=== PATIENT | male | born 1960 | race Caucasian/White ===

== ENCOUNTER → 2016-05-20 | Outpatient (CLI) | payer OTHER | END | disposition home or self-care (01) | LOC: GMAJ 12:44 | PROVIDERS: ATTEND Family Medicine | DX: Z00.00 Encounter for general adult medical examination without abnormal findings (principal) ==

== ENCOUNTER → 2019-12-22 | Outpatient (CLI) | payer BC ==
--- NOTE | 2019-12-22 14:21 | US ---
EXAM DESCRIPTION: Renal (accession [id number]), Renal Arteries (accession [id number]) CLINICAL HISTORY: 59 years Male, ESSENTIAL HTN COMPARISON: None. TECHNIQUE: Real-time sonographic images of the kidneys, retroperitoneum, and urinary bladder are obtained including color duplex Doppler evaluation of the arterial venous vasculature of the kidneys. FINDINGS: The right kidney measures 12.0 x 5.4 x 5.8 cm. The left kidney measures 12.1 x 6.7 x 6.4 cm. Both kidneys show normal renal cortical echogenicity. No hydronephrosis. Normal cortical echogenicity and cortical thickness. Urinary bladder is normally distended and unremarkable. Bladder volume is 204 mL. Abdominal aorta shows no aneurysmal dilatation. Mild scattered calcified plaque of the abdominal aorta. No elevated velocities. No elevated velocities are seen in the visualized main renal arteries. The abdominal aorta renal artery ratio is 1.2 on the right and 1.1 on the left. Right proximal renal artery is not seen secondary to overlying bowel gas. IMPRESSION: Unremarkable renal ultrasound. No hydronephrosis. No ultrasound evidence of renal artery stenosis. Electronically signed by: Dayton Ryder MD 12/22/2019 2:19 PM CDT
--- NOTE | 2019-12-22 14:21 | US ---
EXAM DESCRIPTION: Renal (accession [id number]), Renal Arteries (accession [id number]) CLINICAL HISTORY: 59 years Male, ESSENTIAL HTN COMPARISON: None. TECHNIQUE: Real-time sonographic images of the kidneys, retroperitoneum, and urinary bladder are obtained including color duplex Doppler evaluation of the arterial venous vasculature of the kidneys. FINDINGS: The right kidney measures 12.0 x 5.4 x 5.8 cm. The left kidney measures 12.1 x 6.7 x 6.4 cm. Both kidneys show normal renal cortical echogenicity. No hydronephrosis. Normal cortical echogenicity and cortical thickness. Urinary bladder is normally distended and unremarkable. Bladder volume is 204 mL. Abdominal aorta shows no aneurysmal dilatation. Mild scattered calcified plaque of the abdominal aorta. No elevated velocities. No elevated velocities are seen in the visualized main renal arteries. The abdominal aorta renal artery ratio is 1.2 on the right and 1.1 on the left. Right proximal renal artery is not seen secondary to overlying bowel gas. IMPRESSION: Unremarkable renal ultrasound. No hydronephrosis. No ultrasound evidence of renal artery stenosis. Electronically signed by: Dayton Ryder MD 12/22/2019 2:19 PM CDT
== END ==
LOC: US 07:57
PROVIDERS: ATTEND Family Medicine
DX: I10 Essential (primary) hypertension (principal)